=== PATIENT | male | born 1990 | race Caucasian/White ===

== ENCOUNTER 2018-03-20 19:40 | Emergency (ER) | payer BC ==
[~2018-03-20] VITALS: Ht 177.8 cm; Wt 88.9 kg
[2018-03-20] MEDS ORDERED: INSULIN REGULAR, HUMAN 100 UNIT/1 ML 3ML VIAL SQ ONE (22:30)
== END 2018-03-20 21:04 | disposition home or self-care (01) ==
LOC: FSED 19:40
PROC: 2W3QX1Z Immobilization of Right Lower Leg using Splint (ICD-10-PCS; principal; 2018-03-20)
DX: S82.64XA Nondisplaced fracture of lateral malleolus of right fibula, initial encounter for closed fracture (principal); S82.54XA Nondisplaced fracture of medial malleolus of right tibia, initial encounter for closed fracture; Y93.44 Activity, trampolining; Y92.007 Garden or yard of unspecified non-institutional (private) residence as the place of occurrence of the external cause
CPT/HCPCS: 99283

== ENCOUNTER → 2018-03-20 | Emergency (ER) | END | disposition left against medical advice (07) | LOC: CANPREER → FSED 19:33 | DX: S99.911A Unspecified injury of right ankle, initial encounter (principal) ==